=== PATIENT | female | born 1980 | race Caucasian/White ===

== ENCOUNTER 2018-12-28 16:59 | Inpatient (IN) | payer OTHER ==
[~2018-12-28] VITALS: Ht 167.6 cm; Wt 93.8 kg
--- NOTE | ~2018-12-28 | CON ---
[address] [address] CONSULTATION Name: SPRING DUVALL Room: [address] IN M.R.#: [id number] Admission: 12/28/18 Attend Phys: Avinash Ernandez MD Discharge: Date of : 82 Report #: [id number] THIS REPORT FOR: //name// CC: Kamryn Salmeron DO Avinash Ernandez DICTATED BY: Dariela Hernández [facility] DATE OF SERVICE: 12/29/2018 Please note that at the time of this dictation, the patient was physically seen by myself. REASON FOR CONSULTATION: Abdominal pain. HISTORY OF PRESENT ILLNESS: This is a 38-year-old female, who presented to the emergency room with an abrupt onset of pain, which she describes as the worst indigestion she has ever had. She did try some Tums without any relief and tried to make herself vomit, which she slightly did without any relief of this pressure pain that she was having in her epigastric area. She states she has had off and on indigestion issues in the past; that she has taken mutp-rgy-qeemwtm antacid that has helped with that, but has never had any formal testing done regarding her indigestion. She states this pain was the most intense pain that she has had. She rated it at 10. She states she was unable to stand upright with this discomfort. When she got to the emergency room and got out of the car, she states she almost had an instantaneous relief of pain after she went to the bathroom for leaving a urine sample. She states her pain went from about a 10 down to about 3 or 4 at that time and it has remained at that. She denies any nausea at this time and she has been tolerating clear liquids since admission. The patient has not seen any GI specialist in the past. ALLERGIES: No known drug allergies. MEDICATIONS FROM HOME: No known medications at home. PAST MEDICAL HISTORY: She has had a heart murmur, otherwise negative. PAST SURGICAL HISTORY: . She had a miscarriage. She had a gastric sleeve in 2017 and has lost 170 pounds. She has had a tubal ligation. FAMILY HISTORY: Significant for colon cancer in paternal grandfather and paternal aunt with ovarian cancer. SOCIAL HISTORY: Alcohol socially. She did on Saturday [place] [address] CONSULTATION Name: NENA DUVALLBenedicto Morton Room: [address] IN [facility]#: [id number] Admission: 12/28/18 Attend Phys: Avinash Ernandez MD Discharge: Date of : 82 Report #: [id number] with friends and had alcoholic beverages, which is highly unusual to do it 2 nights in a row. Tobacco use, remote history, and denies any illegal drug use. REVIEW OF SYSTEMS: Twelve-point review of systems is essentially negative except what is mentioned in the HPI. PHYSICAL EXAMINATION: VITAL SIGNS: Temperature 36.8, pulse 62, respirations 17, blood pressure 104/63. HEART: Regular rate and rhythm. LUNGS: Clear. ABDOMEN: Soft, positive bowel sounds in all 4 quadrants with some tenderness noted in the epigastric area. LABORATORY DATA: Hemoglobin is 12.1, white count is 6.3, and platelets 168. Total bilirubin on admission was 1, she is up to 1.5; ____ on admission was 119, it is 117 this morning; ____ 148, it was 89 on admission; AST 144, currently 117. Lipase on admission was greater than 30,000, she is down to 3623. GFR is 94. PT is 9.9. INR is 1. IMAGING: CT of the abdomen and pelvis showed the pancreas to be normal, liver was slightly enlarged, gallbladder normal, no ductal dilatation, and noted a gastric sleeve. IMPRESSION: 1. Abdominal pain. 2. Elevated liver function tests. 3. Elevated lipase. 4. Indigestion with history of this. 5. Gas and bloating. 6. History of gastric sleeve. 7. Family history of colon cancer and ovarian cancer. PLAN: 1. Ultrasound of the abdomen. 2. EGD tomorrow with Dr. Richey regarding her indigestion. 3. Breath test as an outpatient. 4. Further recommendations to be made once the above have been noted. Thank you for allowing us to participate in this patient's care. Please do not hesitate to call with any questions in regard to this consult. By: 1020 [id number] Richey DO /nt
[~2018-12-28 16:59] MED LIST: PERCOCET 7.5-31 EACH PO; PRENATAL VITAMIN
[2018-12-28 17:13] VITALS: BP 116/71
[2018-12-28 17:36] LABS: ABSOLUTE EOSINOPHILS 0.1 thou/uL (0.0-0.7); ABSOLUTE LYMPHOCYTES 1.2 thou/uL (0.8-5.3); ABSOLUTE MONOCYTES 0.6 thou/uL (0.0-1.2); ABSOLUTE NEUTROPHILS 9.2 thou/uL (1.6-8.1); BASOPHILS 0.2 %; EOSINOPHILS 0.9 %; HEMATOCRIT 40.1 % (37.0-47.0); HEMOGLOBIN 13.6 gm/dL (12.0-15.0); MCH 32.2 pg (26.0-34.0); MCHC 33.8 g/dL (28.0-37.0); MCV 95.1 fL (80.0-100.0); MONOCYTES 5.2 %; MPV 9.3 fl. (7.2-11.1); NUCLEATED RBCS 0 /100WBC; PLATELET COUNT* 192 thou/uL (150-400); POLYS 82.7 %; RBC 4.22 mil/uL (4.20-5.00); RDW-CV 12.9 % (10.5-14.5); WBC 11.1 thou/uL (4.0-11.0)
[2018-12-28 17:47] LABS: ANION GAP 8 mmol/L (7-16); BUN 14 mg/dL (7-18); CALCIUM 8.4 mg/dL (8.5-10.1); CHLORIDE 107 mmol/L (98-107); CO2 25 mmol/L (21-32); CREATININE 0.8 mg/dL (0.6-1.3); GLUCOSE 129 mg/dL (70-99); POTASSIUM 3.7 mmol/L (3.5-5.1); SODIUM 140 mmol/L (136-145)
[2018-12-28 17:56] LABS: ALBUMIN 3.3 g/dL (3.4-5.0); ALKALINE PHOSPHATASE 119 U/L (46-116); SGOT 144 U/L (15-37); SGPT 89 U/L (30-65); TOTAL PROTEIN 6.7 g/dL (6.4-8.2); TROPONIN-I LEVEL <0.06 ng/mL (<0.06)
[2018-12-28 18:16] LABS: LIPASE > 30000 U/L (73-393)
--- NOTE | 2018-12-28 19:59 | NUR ---
PATIENT ASSISTED TO BATHROOM TO PROVIDE A URINE SPECIMAN. PATIENT UNABLE TO VOID. PATIENT RETURNED TO ROOM. ED OPEN SHANK COVERER NOTIFIED THAT PATIENT UNABLE TO VOID FOR SPECIMAN.
[2018-12-28 20:01] LABS: PROTIME 9.9 Seconds (9.20-11.50)
[2018-12-28 20:16] LABS: AMP/METHAMP Negative (Negative); BARBITURATES Negative (Negative); BENZODIAZEPINES Negative (Negative); COCAINE Negative (Negative); METHADONE Negative (Negative); OPIATES Negative (Negative); PCP Negative (Negative); THC POSITIVE (Negative)
[2018-12-28 22:51] VITALS: BP 101/62
[2018-12-28 23:00] VITALS: BP 103/59
[2018-12-28] MEDS ORDERED: IBUPROFEN 600600 M1 PO (23:13)
[2018-12-28] MEDS ORDERED: MELATONIN5 M1 PO (23:17)
--- NOTE | 2018-12-29 05:43 | NUR ---
PT ARRIVED FROM ER AROUND 2300 AND WALKED TO BED. IV FLUIDS RUNNING PER P.O. ABLE TO MAKE NEEDS KNOWN. ASSESSMENT COMPLETED CHARTED. UP AD VINOD IN ROOM. C/O SLIGHT UPPER ABDOMINAL PAIN BUT REFUSED PAIN MEDICATION AT THIS TIME. RESTARTED HOME MEDS. VSS. FOLLOWING CLEAR LIQUID DIET, PT RESTING IN BED AT THIS TIME. WILL CONTINUE TO MONITOR.
[2018-12-29 07:55] VITALS: BP 104/63
[2018-12-29 08:03] LABS: HEMATOCRIT 34.8 % (37.0-47.0); HEMOGLOBIN 12.1 gm/dL (12.0-15.0); MCH 33.2 pg (26.0-34.0); MCHC 34.6 g/dL (28.0-37.0); MCV 95.9 fL (80.0-100.0); RBC 3.63 mil/uL (4.20-5.00); RDW-CV 12.9 % (10.5-14.5); WBC 6.3 thou/uL (4.0-11.0)
[2018-12-29 08:16] LABS: ALBUMIN 2.9 g/dL (3.4-5.0); CALCIUM 7.9 mg/dL (8.5-10.1); CREATININE 0.7 mg/dL (0.6-1.3); POTASSIUM 3.6 mmol/L (3.5-5.1); TOTAL BILIRUBIN 1.5 mg/dL (<0.1-1.0); TOTAL PROTEIN 5.8 g/dL (6.4-8.2)
--- NOTE | 2018-12-29 10:16 | NUR ---
RECIEVED REPORT FROM JULIO AND ASSUMED CARE OF PT @ 6761.PT IS A/O X4,VSS,MED-SURG STATUS.IV PATENT AND SALINE LOCKED.PT TOLERATED A CLEAR LIQUID DIET THIS AM.CHANGED TO NPO STATUS FOR ABDOMINAL ULTRASOUND.PT INFORMED OF PLAN OF CARE AND COMMUNICATES UNDERSTANDING.NO C/O PAIN THIS AM BUT PT EDUCATED TO INFORM NURSE IF PAIN OCCURS.PT LEFT RESTING IN BED WITH CALL LIGHT WITHIN REACH.WILL CONTINUE TO MONITOR.
--- NOTE | 2018-12-29 11:03 | NUR ---
INITIAL ASSESSMENT: Pt evaluated for d/c planning needs. Reviewed chart and spoke with nurse and pt. Pt is alert and oriented. Pt lives in home with and children. Pt works outside of the home and is independent with all ADL's. Pt uses no DME and has not had home health. No d/c needs indicated at this time. Will remain available to assist as needed.
[2018-12-29 11:33] LABS: CHOLESTEROL 134 mg/dL (<200); HDL CHOLESTEROL 59 mg/dL (>40); LDL CHOLESTEROL 63 mg/dL (<100); TC:HDL 2.3 Ratio (Not establshd); TRIGLYCERIDE 64 mg/dL (<150); VLDL 13 mg/dL (<40)
[2018-12-29 11:37] LABS: SERUM ASSESSMENT Clear
[2018-12-29 11:56] VITALS: BP 108/66
--- NOTE | 2018-12-29 15:02 | EKG ---
[place] [address] ELECTROCARDIOGRAM REPORT Name: SPRING DUVALL Room: [address] ADM IN M.R.#: [id number] Admission: 12/28/18 Attend Phys: Avinash Ernandez MD Discharge: Date of : 82 Report #: [id number] THIS REPORT FOR: //name// [facility] ED Test Date: 2018-12-28 Test Time: 17:14:06 Pat Name: SPRING DUVALL Department: Room: [facility] Gender: F Hat Binder: : 1980 Requested By: Hossein Hua Order Number: [id number] MD: Rubén Machuca Measurements Intervals [place] Rate: 83 P: 30 HI: 150 QRS: 48 QRSD: 72 T: -13 QT: 457 QTc: 537 Interpretive Statements Sinus rhythm Borderline low voltage, extremity leads Prolonged QT interval No previous ECG available for comparison Electronically Signed On 12-29-2018 15:02:38 CDT by Rubén Machuca [email or web address] <ELECTRONICALLY SIGNED> By: Rubén Machuca MD, [facility] 12/29/18 1502 1714 171 Rubén Machuca MD, [facility] /EPI
[2018-12-29 16:27] VITALS: BP 132/62
--- NOTE | 2018-12-29 17:49 | NUR ---
VSS,MED-SURG STATUS.PT PROGRESSING TOWARDS GOALS.NO C/O PAIN THIS SHIFT.IV PATENT WITH IVF INFUSING PER ORDERS.PT TOLERATING CLEAR LIQUIDS.ABDOMINAL US COMPLETED. PT TO BE NPO AT MIDNIGHT FOR EGD/MRCP.CONSENT ON CHART BUT NOT SIGNED.PT INFORMED OF PLAN OF CARE AND COMMUNICATES UNDERSTANDING.HOURLY ROUNDING COMPLETED FOR PT SAFETY.CALL LIGHT WITHIN REACH.WILL CONTINUE TO MONITOR FOR DURATION OF SHIFT.
[2018-12-29 20:00] VITALS: BP 110/66
[2018-12-30] VITALS: BP 104/68
--- NOTE | 2018-12-30 04:33 | NUR ---
ASSUMED PATIENT CARE AT 1900. PATIENT ALERT AND ORIENTED TIMES FOUR. NO COPLAINTS OF PAIN OR DISCOMFORT THROUGH THE NIGHT. DREDGE PIPE INSTALLER AND HOURLY ROUNDING COMPLETED DOCUMENTED
[2018-12-30 04:39] LABS: ABSOLUTE EOSINOPHILS 0.2 thou/uL (0.0-0.7); ABSOLUTE LYMPHOCYTES 2.1 thou/uL (0.8-5.3); ABSOLUTE MONOCYTES 0.4 thou/uL (0.0-1.2); ABSOLUTE NEUTROPHILS 3.1 thou/uL (1.6-8.1); BASOPHILS 0.5 %; HEMATOCRIT 33.3 % (37.0-47.0); HEMOGLOBIN 11.6 gm/dL (12.0-15.0); LYMPHOCYTES 36.2 %; MCH 33.3 pg (26.0-34.0); MCHC 34.7 g/dL (28.0-37.0); MCV 95.9 fL (80.0-100.0); MONOCYTES 6.8 %; NUCLEATED RBCS 0 /100WBC; PLATELET COUNT* 156 thou/uL (150-400); POLYS 52.5 %; RBC 3.47 mil/uL (4.20-5.00); RDW-CV 13.1 % (10.5-14.5); WBC 5.9 thou/uL (4.0-11.0)
[2018-12-30 05:01] LABS: ALBUMIN 2.8 g/dL (3.4-5.0); CALCIUM 8.3 mg/dL (8.5-10.1); CREATININE 0.8 mg/dL (0.6-1.3); POTASSIUM 3.5 mmol/L (3.5-5.1); TOTAL BILIRUBIN 1.3 mg/dL (<0.1-1.0); TOTAL PROTEIN 5.4 g/dL (6.4-8.2)
[2018-12-30 08:00] VITALS: BP 99/73
[2018-12-30 10:11] LABS: GLYCOHEMOGLOBIN (HGB A1C) 4.7 % (4.8-5.6)
--- NOTE | 2018-12-30 10:31 | NUR ---
VSS, ASSUMED CARE IN THE AM, ASSESSMENT PERFORMED AND CHARTED, FALL PRECAUTIONS IN PLACE AND CALL LIGHT IN REACH, PT IS FOUND THIS AM, WITHOUT ANY PAIN AT THE MONENT, PT IS A&O4 AND ON RA AND IS M/S STATUS, UP AD VINOD, HER GOAL IS TO COMPETE EGD AND MRCP. WILL FOLLOW WITH PLAN OF CARE.
--- NOTE | 2018-12-30 11:15 | NUR ---
Nutrition: Pt assessed for admit DX of pancreatitis. ?gallstone related panc, per progress notes. Lipase WNL now, BG WNL, alb 2.8, elevated LFTs. H/o gastric sleeve. Wt: 203#. Tolerating CLD this morning. Continue advancing diet to low fat/heart healthy. Low nutrition risk.
[2018-12-30 16:00] VITALS: BP 116/61
[2018-12-30 20:00] VITALS: BP 108/61
[2018-12-31] VITALS: BP 87/51
--- NOTE | 2018-12-31 05:08 | NUR ---
ASSUMED PATIENT CARE AT 1900. PATIENT ALERT AND ORIENTED TIMES FOUR. UP AD VINOD. HAS REMAINED NPO SINCE 0000 FOR SURGERY TODAY. SENIOR REPORT DEVELOPER AND HOURLY ROUNDING COMPLETED DOCUMENTED
[2018-12-31 05:18] LABS: HEMATOCRIT 34.2 % (37.0-47.0); MCH 33.6 pg (26.0-34.0); MCV 95.8 fL (80.0-100.0); RBC 3.57 mil/uL (4.20-5.00); RDW-CV 12.7 % (10.5-14.5); WBC 5.7 thou/uL (4.0-11.0)
[2018-12-31 05:33] LABS: ALBUMIN 2.7 g/dL (3.4-5.0); CALCIUM 8.2 mg/dL (8.5-10.1); CREATININE 0.7 mg/dL (0.6-1.3); MAGNESIUM 1.8 mg/dL (1.8-2.4); POTASSIUM 3.6 mmol/L (3.5-5.1); TOTAL BILIRUBIN 1.3 mg/dL (<0.1-1.0); TOTAL PROTEIN 5.6 g/dL (6.4-8.2)
[2018-12-31 08:00] VITALS: BP 99/53
--- NOTE | 2018-12-31 08:00 | NUR ---
AM ASSESSMENT COMPLETE, DEFER TO COMPUTER CHARTING. DENIES PAIN, DIZZINESS, NAUSEA AT THIS TIME. IV INFUSING, REMAINS NPO FOR POSSIBLE SURGERY. CALL LIGHT WITHIN REACH. WILL CONTINUE WITH PLAN OF CARE.
[2018-12-31 16:00] VITALS: BP 108/70
--- NOTE | 2018-12-31 17:36 | NUR ---
UP IN CHAIR AT THIS TIME VISITING WITH FAMILY. TOLERATED LUNCH AND DINNER WITH NO COMPLAINTS OF NAUSEA OR ABD PAIN. IV FLUIDS DC'D EARLIER PER ORDERS. CALL LIGHT WITHIN REACH. WILL CONTINUE WITH PLAN OF CARE.
[2018-12-31 20:00] VITALS: BP 103/61
[2019-01-01] VITALS: BP 94/56
--- NOTE | 2019-01-01 03:36 | NUR ---
ASSUMED PT CARE AT APPROX 1930. PT IS AWAKE AND ORIENTED X4. VSS ON ROOM AIR. PT DENIES PAIN/DISCOMFORT, DENIES NAUSEA. ASSESSMENT DONE AND CHARTED. PT's ABLE TO SLEEP THROUGHT HE NIGHT. CALL LIGHT WITHIN REACH. HOURLY ROUNDING DONE FOR PT SAFETY.
--- NOTE | 2019-01-01 07:20 | NUR ---
CHNAGE OF SHIFT BEDSIDE REPORT GIVEN PATIENT SEEN AT BEDSIDE, IN BED ASLEEP ASSUMED PATIENT CARE
[2019-01-01 07:44] LABS: CALCIUM 8.4 mg/dL (8.5-10.1); CREATININE 0.8 mg/dL (0.6-1.3); POTASSIUM 3.6 mmol/L (3.5-5.1); TOTAL BILIRUBIN 1.2 mg/dL (<0.1-1.0)
[2019-01-01 08:00] VITALS: BP 106/57
--- NOTE | 2019-01-01 13:07 | PATH ---
[address] [address] PATHOLOGY RPT PROCEDURE Name: GERMAINE DUVALL Room: [facility] IN M.R.#: [id number] Admission: 12/28/18 Date of : 82 Discharge: Report #: [id number] Path Case #: [id number] [facility] Accession Number: [id number] . 01 Material submitted: . stomach - ANTRAL BIOPSY FOR H-PYLORI . 01 Clinical history: . None provided . 02 Diagnosis: Stomach, antrum, biopsy: - Chronic superficial gastritis, mild. - No evidence of Helicobacter pylori on immunoperoxidase stain. . (SKM:mml; 01/01/2019) QL/01/01/2019 . 02 Electronically signed: . Juan Choi MD, Pathologist NPI- [id number] . 01 Gross description: . The specimen is received in formalin, labeled "Germaine Munozjas, antral biopsy for H. pylori". Received is a segment of pale medina soft tissue measuring 0.5 cm in maximum dimensions. The specimen is submitted entirely in cassette A1. (CAA; 12/31/2018) QAC/QAC . 02 Microscopic: . . . 02 Pathologist provided ICD-10: K29.30 . 02 CPT . 108939, B75276 Specimen Comment: A courtesy copy of this report has been sent to Specimen Comment: [phone], , . Specimen Comment: Report sent to ,DR MCLEOD / DR PORRAS Performed at: [address] [id number] MD Sixto Arguello MD Phone: [phone] Performed at: [address] [id number] [place] [address] PATHOLOGY RPT PROCEDURE Name: GERMAINE DUVALL Room: [address] IN M.R.#: [id number] Admission: 12/28/18 Date of : 82 Discharge: Report #: [id number] Path Case #: [id number] MD Armen Ayoub MD Phone: [phone]
[2019-01-01 16:00] VITALS: BP 105/64
[2019-01-01 20:30] VITALS: BP 106/70
[2019-01-02] VITALS (10 sets, daily range): BP systolic 94–114; BP diastolic 48–68
[2019-01-02 02:04] LABS: ABSOLUTE EOSINOPHILS 0.2 thou/uL (0.0-0.7); ABSOLUTE LYMPHOCYTES 2.4 thou/uL (0.8-5.3); ABSOLUTE MONOCYTES 0.5 thou/uL (0.0-1.2); BASOPHILS 0.6 %; EOSINOPHILS 2.5 %; HEMATOCRIT 37.5 % (37.0-47.0); HEMOGLOBIN 12.8 gm/dL (12.0-15.0); LYMPHOCYTES 33.4 %; MCH 32.6 pg (26.0-34.0); MCHC 34.2 g/dL (28.0-37.0); MCV 95.4 fL (80.0-100.0); MONOCYTES 7.4 %; MPV 9.7 fl. (7.2-11.1); NUCLEATED RBCS 0 /100WBC; PLATELET COUNT* 178 thou/uL (150-400); POLYS 56.1 %; RBC 3.93 mil/uL (4.20-5.00); RDW-CV 12.9 % (10.5-14.5); WBC 7.1 thou/uL (4.0-11.0)
[2019-01-02 02:17] LABS: ALBUMIN 3.1 g/dL (3.4-5.0); CALCIUM 8.3 mg/dL (8.5-10.1); CREATININE 0.8 mg/dL (0.6-1.3); POTASSIUM 3.5 mmol/L (3.5-5.1); TOTAL BILIRUBIN 0.8 mg/dL (<0.1-1.0); TOTAL PROTEIN 6.2 g/dL (6.4-8.2)
--- NOTE | 2019-01-02 05:23 | NUR ---
PT ALERT AND ORIENTED. VSS ON RA. ASSESSMENT DOCUMENTED. TYLENOL ORDERED AND GIVEN FOR CALDERON. PT NPO AFTER MN FOR KATHIE CAVAZOS TODAY. IV ON RAC SL. PT PLEASANT AND APPROPRIATE. HOURLY ROUNDINGS MADE. WILL CONTINUE TO MONITOR.
--- NOTE | 2019-01-02 07:20 | NUR ---
CHANGE OF SHIFT, BEDSIDE REPORT GIVEN PATIENT SEEN AT BEDSIDE, IN BED RESTING ASSUMED PATIENT CARE
--- NOTE | 2019-01-02 18:52 | NUR ---
patient request dc tomorrow concerned about pain and still a bit sedated operations research scientist notified
[2019-01-03 04:46] VITALS: BP 92/58
--- NOTE | 2019-01-03 05:32 | NUR ---
ASSUMED PT CARE APPROX 1930. PT IS AWAKE AND ORIENTED X4. VSS ON ROOM AIR. ASSESSMENT DONE AND CHARTED. PT C/O ABDOMINAL PAIN, RELIEVED WITH PAIN MEDICINE GIVEN PER SEP. PT WAS ABLE TO SLEEP MOST OF THE NIGHT. CALL LIGHT WITHIN REACH. HOURLY ROUNDING DONE FOR PT SAFETY.
[2019-01-03 07:59] VITALS: BP 90/56
--- NOTE | 2019-01-03 08:38 | OP ---
[address] [address] OPERATIVE REPORT Name: SPRING DUVALL Room: [address] IN M.R.#: [id number] Admission: 12/28/18 Attend Phys: Avinash Ernandez MD Discharge: Date of : 82 Report #: [id number] THIS REPORT FOR: //name// CC: Kamryn Kee Dictating on behalf of Alyson Garcia DO PREOPERATIVE DIAGNOSIS: Gallstone pancreatitis. POSTOPERATIVE DIAGNOSIS: Gallstone pancreatitis. PROCEDURE PERFORMED: Laparoscopic cholecystectomy with intraoperative cholangiogram. SURGEON: Alyson Garcia DO. CO-SURGEON: Chava Boyer DO, PGY-2. BLOCK SAWYER: Dennis PGY-1. ANESTHESIA: General and local. ESTIMATED BLOOD LOSS: 5 mL. COMPLICATIONS: None. FINDINGS: Normal flow of contrast through the biliary system including the common bile duct and into the duodenum. No evidence of a stricture or stone in the common bile duct, otherwise normal biliary anatomy. SPECIMEN: Gallbladder. HISTORY OF PRESENT ILLNESS: The patient is a pleasant 38-year-old female who was admitted to the hospital with pancreatitis. She was found to have gallstones and suspected gallstone pancreatitis. She did have an elevated bilirubin on admission. MRCP was negative for choledocholithiasis and as her bilirubin came down and there was no suspicion for choledocholithiasis, we elected to proceed with laparoscopic cholecystectomy. Risks, complications, and benefits were discussed at length and she agreed to proceed with surgery. DESCRIPTION OF PROCEDURE: After consent was obtained, the patient was taken to the operating room and placed in the supine position. SCDs applied to bilateral lower extremities. A safety belt placed across the patient's waist. Two grams Ancef given for surgical prophylaxis. [place] [address] OPERATIVE REPORT Name: ELOINASPRING M Room: [address] IN [facility]#: [id number] Admission: 12/28/18 Attend Phys: Avinash Ernandez MD Discharge: Date of : 82 Report #: [id number] without any complication. The patient was intubated, then prepped and draped in the standard sterile fashion. Timeout was performed to confirm the patient and the procedure. A transverse incision was made just below the umbilicus with an 11 blade scalpel. Electrocautery was used for hemostasis. Hemostat was used to bluntly dissect down to the level of the fascia with the assistance of S retractors. Once the fascia was encountered, it was grasped between 2 Kochers and elevated. The fascia was scored. Hemostat was used to bluntly enter the peritoneum. Finger sweep was performed to confirm no intra-abdominal adhesions. A 10 mm Sai trocar was inserted into the abdomen. Insufflation was initiated. Camera was inserted into the abdomen. Intra-abdominal contents were inspected. There was an adhesive band just below the umbilicus that appeared to be connected to some small bowel. The gallbladder could not be seen easily in the right upper quadrant. The stomach itself was very distended. ____ tube was placed and the stomach distention was immediately relieved. Another 11 mm trocar was placed subxiphoid under direct visualization. The gallbladder was elevated and appeared to be very distended with only some moderate signs of previous inflammation. Two more 5 mm trocars were placed in the right upper quadrant. There were some adhesions to the right side of the liver that were taken down with electrocautery. Once these adhesions were taken down, the gallbladder was able to be retracted more cephalad. Attention was then turned to dissecting out the cystic artery and cystic duct. There was a large artery just medial to our dissection plane that was suspicious for the right hepatic artery. Electrocautery was used to score the fat just above the cystic duct. Peritoneum was taken medially and laterally with electrocautery. Once the peritoneum was cleared, [place] dissector was used to bluntly dissect some of the structures around the cystic duct. Cystic duct was circumferentially dissected and could be seen easily going up into the gallbladder. Attention was then turned to isolating the cystic artery. This was more medial and it could be seen coming directly out of what appeared to be the right hepatic artery. Cystic artery was circumferentially dissected using a combination of hook electrocautery and [place] dissection. Once both structures were easily dissected out and seen going up into the gallbladder. Delacruz clamp was placed along Tylor's pouch. Catheter was placed into the cystic duct. Normal saline was easily flushed and bile could easily be aspirated indicating correct placement. C-arm was brought in and fluoroscopy was used to ensure we were in the correct position. At this time, about 15 mL of contrast was injected with contrast with cholangiography being performed. Contrast could be seen filling portion of the gallbladder as well as the biliary system. Right and left hepatic ducts were patent as well as the common hepatic, common bile duct was completely patent and there was no evidence of stones or stricture and contrast flowed easily into the duodenum. After cholangiogram was performed and catheter were removed. Clips were placed 3 times distally on the cystic duct and twice proximally and then clamps were placed twice distally and once proximally on the cystic artery. These both structures were cut. Attention was then turned towards taking the gallbladder off of the liver. A small hole was made on the medial aspect of the gallbladder and some bile did spill out. This bowel was [facility] [address] [place] [address] OPERATIVE REPORT Name: SPRING DUVALL Room: [address] IN .R.#: [id number] Admission: 12/28/18 Attend Phys: Avinash Ernandez MD Discharge: Date of : 82 Report #: [id number] suctioned up immediately. Gallbladder was completely removed from the gallbladder using hook electrocautery. The gallbladder was then placed in a laparoscopic EndoCatch bag. After hemostasis was assured, copious irrigation of the gallbladder fossa and Morison's pouch was done. Once all fluid was suctioned out, there was no evidence of further bile or bleeding. The clips were inspected, again these appeared to be intact. There is no evidence of bile or blood. Insufflation was let down. All trocars were removed under direct visualization. The gallbladder contents were removed from the infraumbilical incision. There were gallstones in the gallbladder. The infraumbilical fascia was closed with running stitch of 0 Vicryl in a rmgsrz-em-jjnih fashion. All skin incisions were closed with 4-0 Monocryl. Sterile dressings were applied over top. All counts were correct x 2 at the end of the case. The patient tolerated the procedure very well and was transferred to PACU in stable condition after anesthesia was reversed. <ELECTRONICALLY SIGNED> By: Chava Boyer DO 01/03/19 0838 1418 1722Chava Boyer DO /etelvina
[2019-01-03 09:35] VITALS: BP 90/56
[2019-01-03] MEDS ORDERED: ROXICODONE5 M2 PO (09:46)
--- NOTE | 2019-01-03 09:58 | NUR ---
ASSUMED CARE OF PT AT 0730. PT RESTING IN BED. PT A&0X4, DENIES ANY PAIN OR SHORTNESS OF BREATH AT THIS TIME. PT STATES SHE IS READY TO GO HOME. PT MED SURG STATUS. PT ON RA SAT UPPER 90'S.PT UP AD VINOD IN ROOM. LAP [facility] SITES C/D/I. PT GOAL FOR TODAY IS PAIN MGMT AND DISCHARGE PLANNING TO HOME. AM ASSESSMENT CHARTED. MEDICATIONS PER MAR. PT REPOSITIONS SELF. HOURLY ROUNDING OBSERVED. BED IN LOW POSITION. CALL LIGHT WITHIN REACH. WILL CONTINUE PLAN OF CARE.
--- NOTE | 2019-01-03 10:27 | NUR ---
DISCHARGE ORDERS RECEIVED. DISCHARGE INSTRUCTIONS, CARE NOTES, SCRIPTS AND FOLLOW UP APPTS GIVEN TO PT. PT COMMUNICATES UNDERSTANDING OF DISCHARGE TEACHING. IV REMOVED. NO EPIC DIRECTOR IN PLACE PT MED SURG. PT DISCHARGED WITH ALL BELONGINGS AND PAPERWORK VIA WHEELCHAIR WITH NURSING STAFF TO SPOUSE OWN PERSONAL VEHICLE.
== END 2019-01-03 10:35 | disposition home or self-care (01) | DRG 417 ==
LOC: M.ERS 16:59 → M.TBA-ER 18:35 → M.2W 18:35
PROVIDERS: Internal Medicine; Internal Medicine Gastroenterology; Nurse Practitioner Adult Health; Nurse Practitioner Family; Surgery; ADMIT Internal Medicine
PROC: 0DJ08ZZ Inspection of Upper Intestinal Tract, Via Natural or Artificial Opening Endoscopic (ICD-10-PCS; principal; 2018-12-30)
PROC: BF141ZZ Fluoroscopy of Gallbladder, Bile Ducts and Pancreatic Ducts using Low Osmolar Contrast (ICD-10-PCS; 2019-01-02)
PROC: 0FT44ZZ Resection of Gallbladder, Percutaneous Endoscopic Approach (ICD-10-PCS; 2019-01-02)
DX: K80.20 Calculus of gallbladder without cholecystitis without obstruction (principal); K85.10 Biliary acute pancreatitis without necrosis or infection; E44.1 Mild protein-calorie malnutrition; K21.0 Gastro-esophageal reflux disease with esophagitis; K29.70 Gastritis, unspecified, without bleeding; K44.9 Diaphragmatic hernia without obstruction or gangrene; Z68.33 Body mass index [BMI] 33.0-33.9, adult; Z98.891 History of uterine scar from previous surgery; Z90.3 Acquired absence of stomach [part of]; Z79.899 Other long term (current) drug therapy; Z80.0 Family history of malignant neoplasm of digestive organs; Z80.41 Family history of malignant neoplasm of ovary